=== PATIENT | female | born 1985 | race Caucasian/White ===

== ENCOUNTER 2022-02-02 10:49 | Emergency (ER) | payer MEDICAID ==
[~2022-02-02] VITALS: Ht 162.6 cm; Wt 59.0 kg
--- NOTE | 2022-02-02 11:00 | NUR ---
RIGHT ANKLE INJURY SUSTAINE WHILE SKATEBOARDING. AAOX4 VISIBLE DEFORMITY OF THE R ANKLE. AT BED SIDE
--- NOTE | 2022-02-02 11:10 | NUR ---
X-RAY TECH. AT BED SIDE
--- NOTE | 2022-02-02 11:55 | NUR ---
Patient discharged to home in stable condition. Written and verbal after care instructions given. Patient verbalizes understanding of instruction.
[2022-02-02 12:15] VITALS: BP 140/95
== END 2022-02-02 11:55 | disposition home or self-care (01) ==
LOC: ER 10:49
DX: S82.51XA Displaced fracture of medial malleolus of right tibia, initial encounter for closed fracture (principal); S82.61XA Displaced fracture of lateral malleolus of right fibula, initial encounter for closed fracture; S92.331A Displaced fracture of third metatarsal bone, right foot, initial encounter for closed fracture; S92.341A Displaced fracture of fourth metatarsal bone, right foot, initial encounter for closed fracture; F17.200 Nicotine dependence, unspecified, uncomplicated; X50.1XXA Overexertion from prolonged static or awkward postures, initial encounter; Y93.51 Activity, roller skating (inline) and skateboarding; Y92.89 Other specified places as the place of occurrence of the external cause; Y99.8 Other external cause status
CPT/HCPCS: 73610-TC; 73630-TC